=== PATIENT | female | born 1970 | race Caucasian/White ===

== ENCOUNTER 2022-08-09 12:34 | Emergency (ER) | payer OTHER ==
[~2022-08-09] VITALS: Ht 175.2 cm; Wt 49.9 kg
[~2022-08-09 12:34] MED LIST: BACTRIM DS 8001 TA1 PO; CIPRO250 MG PO; DIFLUCAN150 MG PO; FLAGYL500 MG PO; KEFLEX500 MG PO; NKHM; VICODIN 5/500 505 MG PO
[2022-08-09 13:15] LABS: BILIRUBIN 1+ (Negative); BLOOD 2+ (Negative); CLARITY Turbid (Clear); COLOR Dark Yellow (Yellow); GLUCOSE Negative (Negative); KETONE Trace (Negative); LEUKO ESTERASE 3+ (Negative); NITRITE Positive (Negative); PH 5.5 (4.5-8.0)
[2022-08-09 13:24] LABS: BACTERIA 2+; RBC TNTC rbc/hpf (0-2); WBC TNTC wbc/hpf (0-5)
[2022-08-09] MEDS ORDERED: CEPHALEXIN500 M1 PO (13:30)
== END 2022-08-09 14:08 | disposition home or self-care (01) ==
LOC: ED 12:34
PROVIDERS: Nurse Practitioner Family
DX: N39.0 Urinary tract infection, site not specified (principal); Z98.890 Other specified postprocedural states